=== PATIENT | female | born 1955 | race Caucasian/White ===

== ENCOUNTER 2020-02-15 10:31 | Outpatient (NON) | payer OTHER, SELFPAY ==
[2020-02-15 23:01] LABS: SARS-CoV-2 RNA PCR Negative
== END 2020-02-15 10:32 ==
DX: Z20.828 Contact with and (suspected) exposure to other viral communicable diseases (principal)
CPT/HCPCS: 87635; C9803; U0003

== ENCOUNTER → 2020-07-22 06:30 | Outpatient (CLI) | payer OTHER, SELFPAY ==
[2020-07-22 19:23] LABS: SARS-CoV-2 RNA PCR Negative
== END ==
DX: Z01.812 Encounter for preprocedural laboratory examination (principal); Z20.822 Contact with and (suspected) exposure to COVID-19
CPT/HCPCS: C9803; U0003; U0005

== ENCOUNTER → 2020-08-12 06:37 | Outpatient (CLI) | payer OTHER, SELFPAY ==
[2020-08-12 19:50] LABS: SARS-CoV-2 RNA PCR Negative
== END ==
DX: Z01.812 Encounter for preprocedural laboratory examination (principal); Z20.822 Contact with and (suspected) exposure to COVID-19
CPT/HCPCS: C9803; U0003; U0005